=== PATIENT | female | born 1980 | race African-American/Black ===

== ENCOUNTER 2018-03-11 14:06 | Emergency (ER) | payer MEDICAID ==
[~2018-03-11] VITALS: Ht 167.6 cm; Wt 71.2 kg
[2018-03-11 14:24] VITALS: BP 131/83
--- NOTE | 2018-03-11 14:34 | NUR ---
ED Nurse Note: Pt came in due to LLQ abd pain started yesterday morning and feels bloated. Denies N/V. LBM 2 days ago. Pt also states that hse missed her menstrual period this month. Pt is AAO x4, ambulates with steady gait. No respiratory distress. VSS.
[2018-03-11 15:30] VITALS: BP 128/87
[2018-03-11 15:30] LABS: APPEARANCE,URINE SLIGHTLY CLOUDY; BILIRUBIN, URINE NEGATIVE (NEGATIVE); COLOR,URINE PALE YELLOW; GLUCOSE, URINE (UA) NEGATIVE (NEGATIVE); KETONES,URINE NEGATIVE (NEGATIVE); LEUKOCYTE ESTERASE ,URINE NEGATIVE (NEGATIVE); NITRITE,URINE NEGATIVE (NEGATIVE); PH,URINE 6.5 (4.5-8.0); PROTEIN,URINE 3+ (NEGATIVE); UROBILINOGEN,URINE NORMAL MG/DL (0.0-1.0)
--- NOTE | 2018-03-11 15:37 | NUR ---
ED Nurse Note: Pt resting on bed with blankets provided. Waiting for U/A result.
--- NOTE | 2018-03-11 15:47 | NUR ---
ED Nurse Note: test shows positive result. ER MD at the bed side. Pt is aware of the result. Awaiting for US.
--- NOTE | 2018-03-11 15:54 | NUR ---
ED Nurse Note: Blood collected and sent.
--- NOTE | 2018-03-11 15:55 | NUR ---
ED Nurse Note: Pt went down for US.
[2018-03-11 15:58] LABS: BASOPHILS % (AUTO) 0.7 % (0.0-2.0); EOSINOPHILS % (AUTO) 1.5 % (0.0-3.0); HEMATOCRIT 35.3 % (37.0-47.0); HEMOGLOBIN 11.5 G/DL (12.0-16.0); LYMPHOCYTES % (AUTO) 15.8 % (20.0-45.0); MEAN CORPUSCULAR VOLUME 80 FL (80-99); MONOCYTES % (AUTO) 4.7 % (1.0-10.0); NEUTROPHILS % (AUTO) 77.4 % (45.0-75.0); PLATELET COUNT 183 K/UL (150-450); RED BLOOD COUNT 4.39 M/UL (4.20-5.40); RED CELL DISTRIBUTION WIDTH 12.6 % (11.6-14.8); WHITE BLOOD COUNT 17.9 K/UL (4.8-10.8)
--- NOTE | 2018-03-11 16:10 | NUR ---
ED Nurse Note: Dr Olmstead ordered to cancel abdominal xray.
[2018-03-11 16:11] LABS: ANION GAP 9 mmol/L (5-15); BLOOD UREA NITROGEN 9 mg/dL (7-18); CARBON DIOXIDE 24 MMOL/L (21-32); CHLORIDE 104 MMOL/L (98-107); CREATININE 0.7 MG/DL (0.55-1.30); POTASSIUM 3.7 MMOL/L (3.5-5.1); SODIUM 137 MMOL/L (136-145)
[2018-03-11 16:15] LABS: ALANINE AMINOTRANSFERASE 21 U/L (12-78); ALBUMIN 3.2 G/DL (3.4-5.0); ALBUMIN/GLOBULIN RATIO 0.9 (1.0-2.7); ALKALINE PHOSPHATASE 57 U/L (46-116); ASPARTATE AMINO TRANSFERASE 13 U/L (15-37); BILIRUBIN,TOTAL 0.2 MG/DL (0.2-1.0)
--- NOTE | 2018-03-11 16:23 | Emergency Room Report ---
History of Present Illness General Chief Complaint: Abdominal Pain Source: Patient Present Illness HPI 37-year-old female presents ED for evaluation. Patient complaining of lower abdominal pain since yesterday. Localized left lower quadrant, dull, 6 out of 10, nonradiating. Denies vaginal bleeding or discharge. States that her last period was in early January. He is not sure if she is . Denies nausea or vomiting. Denies any diarrhea. No other aggravating relieving factors. Denies any other associated symptoms Allergies: Coded Allergies: No Known Allergies (Unverified , 03/11/18) Patient History Past Medical History: none Past Surgical History: none Pertinent Family History: none Social History: Denies: smoking, alcohol use, drug use Last Menstrual Period: 12-1 Now: No - not sure Immunizations: UTD Reviewed Nursing Documentation: PMH: Agreed; PSxH: Agreed Nursing Documentation-PMH Past Medical History: No Stated History Review of Systems All Other Systems: negative except mentioned in HPI Physical Exam Vital Signs Date Time Temp Pulse Resp B/P (MAP) Pulse Ox O2 Delivery O2 Flow Rate FiO2 03/11/18 14:24 98.4 18 131/83 98 Room Air 03/11/18 14:24 101 Sp02 EP Interpretation: reviewed, normal General Appearance: no apparent distress, alert, GCS 15, non-toxic Head: normocephalic, atraumatic Eyes: bilateral eye normal inspection, bilateral eye PERRL ENT: hearing grossly normal, normal pharynx, no angioedema, normal voice Neck: full range of motion, supple/symm/no masses Respiratory: chest non-tender, lungs clear, normal breath sounds, speaking full sentences Cardiovascular #1: regular rate, rhythm, no edema Cardiovascular #2: 2+ carotid (R), 2+ carotid (L), 2+ radial (R), 2+ radial (L) , 2+ dorsalis pedis (R), 2+ dorsalis pedis (L) Gastrointestinal: normal bowel sounds, non tender, soft, non-distended, no guarding, no rebound Rectal: deferred Genitourinary: normal inspection, no CVA tenderness Musculoskeletal: back normal, gait/station normal, normal range of motion, non- tender Neurologic: alert, oriented x3, responsive, motor strength/tone normal, sensory intact, speech normal Psychiatric: judgement/insight normal, memory normal, mood/affect normal, no suicidal/homicidal ideation Reflexes: 3+ bicep (R), 3+ bicep (L), 3+ tricep (R), 3+ tricep (L), 3+ knee (R) , 3+ knee (L) Skin: normal color, no rash, warm/dry, well hydrated Lymphatic: no adenopathy Medical Decision Making Last Vital Signs Date Time Temp Pulse Resp B/P (MAP) Pulse Ox O2 Delivery O2 Flow Rate FiO2 03/11/18 14:34 101 18 Room Air 03/11/18 14:24 98.4 131/83 98 Referrals: [facility],REFERRING (PCP) Kevin Olmstead MD Mar 11, 2018 16:23
--- NOTE | 2018-03-11 16:56 | NUR ---
ED Nurse Note: Patient back from US. No distress.
[2018-03-11 17:35] VITALS: BP 136/80
--- NOTE | 2018-03-11 17:35 | NUR ---
ED Nurse Note: Pt cleared by ER MD for discharge. ACI was given and explained to pt that she needs to visit her [employer] and verbalized understanding of teachings. All medical devices such as ID band/IV removed. Pt is AAO x4, ambulatory with steady gait and left with all personal belongings.
--- NOTE | 2018-03-12 09:06 | Diagnostic Imaging Report ---
Indication: Abdominal pain Technique: Supine view of the abdomen Comparison: none Findings: Bowel gas pattern is unremarkable. No unusual masses or calcifications. Impression: No acute process
--- NOTE | 2018-03-12 09:15 | Diagnostic Imaging Report ---
Indication: Pelvic pain, patient Technique: Transabdominal and transvaginal images. Doppler interrogation of the bilateral ovaries Comparison: none Findings: Uterus measures 10.5 cm length by 6 cm AP PA. Within the right atrium, there is a gestational sac. This contains a pole with a crown-rump length of 2.1 cm. This corresponds to an estimated gestational age of 8 weeks 5 days. There is positive heart activity, heart rate 173 bpm. There is a small area of subchorionic hemorrhage measuring 17 x 8 mm. No myometrial abnormality. Left ovary measures 3 cm in length. Right ovary measures 2.9 cm in length. Both ovaries demonstrate normal blood flow. No free cul-de-sac fluid Impression: Positive for 8 week 5 day, by crown-rump length measurement, single live intrauterine . Small 17 x 8 mm subchorionic hemorrhage
== END 2018-03-11 17:35 | disposition home or self-care (01) ==
LOC: EMR 15:00
DX: R10.30 Lower abdominal pain, unspecified (principal); O46.91 Antepartum hemorrhage, unspecified, first trimester; Z3A.08 8 weeks gestation of pregnancy
CPT/HCPCS: 36415; 74018; 76801; 76830; 80053; 81003; 81025; 83690; 84702; 85025; 99284

== ENCOUNTER 2018-10-19 12:47 | Emergency (ER) | payer MEDICAID ==
[~2018-10-19] VITALS: Ht 167.6 cm; Wt 82.6 kg
[~2018-10-19 12:47] MED LIST: METRONIDAZOLE500 MG ORAL
[2018-10-19 12:55] VITALS: BP 146/79
--- NOTE | 2018-10-19 13:00 | NUR ---
ED Nurse Note: Patient walked into ED c/o sub sternal chest pain that he rates 7/10 pain, states that this has been an going issue for the past week, patient recently gave 7 days ago and states that the symptoms started after giving , patient did take a ibuprofen earlier at 1230 today and has found no relief. IV started on left AC 20 gauge, patient is alert and oriented x4 and walks with a steady gait
[2018-10-19] MEDS ORDERED: PRENATAL 19 TA1 EAC1 PO (13:04)
[2018-10-19] MEDS ORDERED: Isovue-370 150ml vial INJ PRN (13:15)
--- NOTE | 2018-10-19 13:33 | Emergency Room Report ---
History of Present Illness General Chief Complaint: Chest Pain Source: Patient (Ann Curran DO) Present Illness HPI Patient presents with complaints of left upper chest pain Reports that the pain has been ongoing ever since delivery on 11 October There is a pleuritic component to it Denies any vomiting or diarrhea denies any abdominal pain She feels that laying on her left side improved symptoms Denies any recent travel otherwise denies any fevers or cough (Ann Curran DO) Allergies: Coded Allergies: No Known Allergies (Unverified , 03/11/18) Patient History Past Medical History: see triage record Now: No : 3 Para: 2 Reviewed Nursing Documentation: PMH: Agreed; PSxH: Agreed (Ann Curran DO) Nursing Documentation-PMH Past Medical History: No History, Except For Hx Cardiac Problems: No - Hx Hypertension: Yes Hx Pacemaker: No Hx Asthma: No Hx COPD: No Hx Diabetes: No Hx Cancer: No Hx Gastrointestinal Problems: No Hx Dialysis: No Hx Neurological Problems: No Hx Cerebrovascular Accident: No Hx Seizures: No (Ann Curran DO) Review of Systems All Other Systems: negative except mentioned in HPI (Ann Curran DO) Physical Exam Vital Signs Date Time Temp Pulse Resp B/P (MAP) Pulse Ox O2 Delivery O2 Flow Rate FiO2 10/19/18 12:50 98.8 112 18 146/79 (101) 99 Room Air Sp02 EP Interpretation: reviewed, normal General Appearance: well appearing, no apparent distress Head: normocephalic, atraumatic Eyes: bilateral eye PERRL, bilateral eye EOMI ENT: hearing grossly normal, normal pharynx, TMs + canals normal, uvula midline Neck: full range of motion, supple, no meningismus, no bony tend Respiratory: lungs clear, normal breath sounds, no rhonchi, no respiratory distress, no retraction, no accessory muscle use Cardiovascular #1: normal peripheral pulses, no edema, no gallop, no JVD, no murmur, tachycardia Gastrointestinal: normal bowel sounds, non tender, soft, no mass, no organomegaly, non-distended, no guarding, no hernia, no pulsatile mass, no rebound Genitourinary: no CVA tenderness Musculoskeletal: normal inspection Neurologic: oriented x3, responsive, advance agent III-XII nml as tested, motor strength/ tone normal, sensory intact Psychiatric: mood/affect normal Skin: no rash Lymphatic: normal inspection, no adenopathy (Ann Curran DO) Procedures Critical Care Time Critical Care Time i. I feel this is a highly complex case requiring extensive working including EKG/Rhythm strip, Xray/CT/US, Blood/urine lab work, repeat exams while in ED, and administration of strong opiates/narcotics for pain control, admission to hospital or close patient follow up. Total time: 60 min bedside evaluation and treatment excludes procedures (EKG). Reason for critical care: dyspnea, pericardial effusion. Possible complications: hypotension, hypertension, [place], shock, arrhythmias, metabolic acidosis, end organ damage, respiratory failure. Interventions: CTA, discussion with cardiology, stat 2D ECHO Course: Presenting with shortness of breath. Status post on 10/12. Concern for PE. CT angio shows no evidence of PE but there is pericardial effusion. Discussed with cardiology. Concern for cardiomyopathy. Recommended stat 2D echo which shows LV hypokinesis with EF 40 to 45% with small pericardial effusion. LV diastolic dysfunction grade 1. Mild pulmonary hypertension. Consistent with possible cardiomyopathy. Patient remains dyspneic. Somewhat tachycardic. Recommended to be admitted Consultations: nursing staff, EMS, family Performed by: Dr Olmstead Tolerated well condition = serious j. because of unstable vital signs this patient had a condition that could potentially threaten life or limb. I feel this is a critical patient who required my full attention while patient was considered critical. Total Critical Care Time excluding procedures was greater than 60 minutes (Kevin Olmstead MD) Medical Decision Making Diagnostic Impression: Primary Impression: Dyspnea Qualified Codes: R06.00 - Dyspnea, unspecified Additional Impressions: Left ventricular hypokinesis Pericardial effusion ER Course Hospital Course 38 year-old female presents ED complaining of SOB. s/p csection on 10/12. patient initially seen and evaluated by Dr Curran; see his note for full history and physical Clinical course Labsnoted leukocytosis, hemoglobin/hematocrit stable, electro lites okay, troponins negative, UDS negative, UA positive bacteria EKGsinus tachycardia, no acute ischemic changes interpreted by me CTA chest -evidence of PE however pericardial effusion noted discussed with cardiology. Recommended 2D echo. 2D echo ordered in ED and shows LV hypokinesis, reduced EF. concern for cardiomyopathy patient remains dyspneic. antibiotics given for UTI Because of insurance patient will be transferred I. I feel this is a highly complex case requiring extensive working including EKG/Rhythm strip, Xray/CT/US, Blood/urine lab work, repeat exams while in ED, and administration of strong opiates/narcotics for pain control, admission to hospital or close patient follow up. Diagnosis - dyspnea, LV hypokinesis, pericardial effusion Transferred in serious condition Labs Test 10/19/18 13:20 10/19/18 13:40 White Blood Count 13.9 K/UL (4.8-10.8) Red Blood Count 5.02 M/UL (4.20-5.40) Hemoglobin 13.1 G/DL (12.0-16.0) Hematocrit 40.0 % (37.0-47.0) Mean Corpuscular Volume 80 FL (80-99) Mean Corpuscular Hemoglobin 26.2 PG (27.0-31.0) Mean Corpuscular Hemoglobin Concent 32.8 G/DL (32.0-36.0) Red Cell Distribution Width 14.5 % (11.6-14.8) Platelet Count 275 K/UL (150-450) Mean Platelet Volume 7.4 FL (6.5-10.1) Neutrophils (%) (Auto) 73.9 % (45.0-75.0) Lymphocytes (%) (Auto) 15.8 % (20.0-45.0) Monocytes (%) (Auto) 7.0 % (1.0-10.0) Eosinophils (%) (Auto) 2.8 % (0.0-3.0) Basophils (%) (Auto) 0.5 % (0.0-2.0) Sodium Level 140 MMOL/L (136-145) Potassium Level 3.7 MMOL/L (3.5-5.1) Chloride Level 105 MMOL/L (98-107) Carbon Dioxide Level 24 MMOL/L (21-32) Anion Gap 11 mmol/L (5-15) Blood Urea Nitrogen 16 mg/dL (7-18) Creatinine 0.9 MG/DL (0.55-1.30) Estimat Glomerular Filtration Rate > 60 mL/min (>60) Glucose Level 104 MG/DL (74-106) Calcium Level 9.2 MG/DL (8.5-10.1) Total Bilirubin 0.6 MG/DL (0.2-1.0) Aspartate Amino Transf (AST/SGOT) 25 U/L (15-37) Alanine Aminotransferase (ALT/SGPT) 48 U/L (12-78) Alkaline Phosphatase 98 U/L (46-116) Total Creatine Kinase 158 U/L (26-308) Creatine Kinase MB 2.1 NG/ML (0.0-3.6) Creatine Kinase MB Relative Index 1.3 Troponin I 0.000 ng/mL (0.000-0.056) Pro-B-Type Natriuretic Peptide 68 pg/mL (0-125) Total Protein 7.2 G/DL (6.4-8.2) Albumin 2.8 G/DL (3.4-5.0) Globulin 4.4 g/dL Albumin/Globulin Ratio 0.6 (1.0-2.7) Urine Color Yellow Urine Appearance Slightly cloudy Urine pH 5 (4.5-8.0) Urine Specific Riva 1.015 (1.005-1.035) Urine Protein 2+ (NEGATIVE) Urine Glucose (UA) Negative (NEGATIVE) Urine Ketones Negative (NEGATIVE) Urine Blood 4+ (NEGATIVE) Urine Nitrite Negative (NEGATIVE) Urine Bilirubin Negative (NEGATIVE) Urine Urobilinogen Normal MG/DL (0.0-1.0) Urine Leukocyte Esterase 1+ (NEGATIVE) Urine RBC 5-10 /HPF (0 - 2) Urine WBC 2-4 /HPF (0 - 2) Urine Squamous Epithelial Cells Moderate /LPF (NONE/OCC) Urine Bacteria Moderate /HPF (NONE) Urine HCG, Qualitative Negative (NEGATIVE) Urine Opiates Screen Negative (NEGATIVE) Urine Barbiturates Screen Negative (NEGATIVE) Phencyclidine (PCP) Screen Negative (NEGATIVE) Urine Amphetamines Screen Negative (NEGATIVE) Urine Benzodiazepines Screen Negative (NEGATIVE) Urine Cocaine Screen Negative (NEGATIVE) Urine Marijuana (THC) Screen Negative (NEGATIVE) (Kevin Olmstead MD) EKG Diagnostic Results Rate: tachycardiac Rhythm: NSR ST Segments: no acute changes ASA given to the pt in ED: No (Kevin Olmstead MD) Rhythm Strip Diag. Results EP Interpretation: yes Rhythm: NSR, no PVC's, no ectopy (Kevin Olmstead MD) CT/MRI/US Diagnostic Results CT/MRI/US Diagnostic Results : Imaging Test Ordered: CTA Impression Findings: The pulmonary artery is well opacified and shows no filling defects. There is no adenopathy. There is no aortic dissection or aneurysm identified within the chest. Trace pericardial effusion demonstrated. Trace bilateral pleural effusions are present with posterior basal atelectasis suspected given the streaky densities. No airspace consolidation seen. Visualized part of the upper abdomen is unremarkable. (Kevin Olmstead MD) Last Vital Signs Date Time Temp Pulse Resp B/P (MAP) Pulse Ox O2 Delivery O2 Flow Rate FiO2 10/19/18 12:55 112 20 Room Air 10/19/18 12:55 98.8 146/79 99 (Ann Curran DO) Status: improved (Kevin Olmstead MD) [facility] Condition: Serious Ann Curran DO Oct 19, 2018 13:33 Kevin Olmstead MD Oct 19, 2018 17:54
[2018-10-19 13:38] LABS: BASOPHILS % (AUTO) 0.5 % (0.0-2.0); EOSINOPHILS % (AUTO) 2.8 % (0.0-3.0); HEMOGLOBIN 13.1 G/DL (12.0-16.0); LYMPHOCYTES % (AUTO) 15.8 % (20.0-45.0); MEAN CORPUSCULAR VOLUME 80 FL (80-99); NEUTROPHILS % (AUTO) 73.9 % (45.0-75.0); PLATELET COUNT 275 K/UL (150-450); RED BLOOD COUNT 5.02 M/UL (4.20-5.40); RED CELL DISTRIBUTION WIDTH 14.5 % (11.6-14.8); WHITE BLOOD COUNT 13.9 K/UL (4.8-10.8)
[2018-10-19] MEDS ORDERED: Enoxaparin 100mg Inj SUBQ ONE (13:45)
[2018-10-19 13:50] LABS: ANION GAP 11 mmol/L (5-15); BLOOD UREA NITROGEN 16 mg/dL (7-18); CALCIUM 9.2 MG/DL (8.5-10.1); CARBON DIOXIDE 24 MMOL/L (21-32); CHLORIDE 105 MMOL/L (98-107); CREATININE 0.9 MG/DL (0.55-1.30); POTASSIUM 3.7 MMOL/L (3.5-5.1); SODIUM 140 MMOL/L (136-145)
--- NOTE | 2018-10-19 14:00 | NUR ---
ED Nurse Note: Patient went down to CT accompanied by krystle
[2018-10-19 14:05] LABS: ALANINE AMINOTRANSFERASE 48 U/L (12-78); ALBUMIN 2.8 G/DL (3.4-5.0); ALBUMIN/GLOBULIN RATIO 0.6 (1.0-2.7); ALKALINE PHOSPHATASE 98 U/L (46-116); ASPARTATE AMINO TRANSFERASE 25 U/L (15-37); BILIRUBIN,TOTAL 0.6 MG/DL (0.2-1.0); CKMB 2.1 NG/ML (0.0-3.6); CREATINE KINASE 158 U/L (26-308)
--- NOTE | 2018-10-19 14:30 | NUR ---
ED Nurse Note: Patient has came back from CT in no distress
--- NOTE | 2018-10-19 15:00 | Diagnostic Imaging Report ---
Indication: Chest pain Technique: Continuous helical transaxial imaging of the chest was obtained from the thoracic inlet to the upper abdomen during rapid intravenous contrast administration. Arterial phase of enhancement obtained. Coronal 2-D reformats were also obtained and maximum intensity projection images in multiple planes. Study obtained in a Siemens sensation [address] Automatic Exposure Control was utilized. Total Dose length Product (DLP): 1202.[address] Dose Index Volume (CTDIvol): 30.37 mGy Comparison: None Findings: The pulmonary artery is well opacified and shows no filling defects. There is no adenopathy. There is no aortic dissection or aneurysm identified within the chest. Trace pericardial effusion demonstrated. Trace bilateral pleural effusions are present with posterior basal atelectasis suspected given the streaky densities. No airspace consolidation seen. Visualized part of the upper abdomen is unremarkable. IMPRESSION: No evidence of pulmonary embolus, aortic dissection or aneurysm. Patchy basilar atelectasis. Trace bilateral pleural effusions Trace pericardial effusion The CT scanner at [facility] is accredited by the [employer] and the scans are performed using dose optimization techniques as appropriate to a performed exam including Automatic Exposure control.
[2018-10-19 15:29] LABS: APPEARANCE,URINE SLIGHTLY CLOUDY; BILIRUBIN, URINE NEGATIVE (NEGATIVE); GLUCOSE, URINE (UA) NEGATIVE (NEGATIVE); KETONES,URINE NEGATIVE (NEGATIVE); LEUKOCYTE ESTERASE ,URINE 1+ (NEGATIVE); NITRITE,URINE NEGATIVE (NEGATIVE); PH,URINE 5 (4.5-8.0); PROTEIN,URINE 2+ (NEGATIVE); UROBILINOGEN,URINE NORMAL MG/DL (0.0-1.0)
[2018-10-19 15:32] LABS: COLOR,URINE YELLOW
[2018-10-19 16:56] VITALS: BP 142/73
--- NOTE | 2018-10-19 16:56 | NUR ---
ED Nurse Note: Patient has agreed to be admitted. complains of no distress at this time
--- NOTE | 2018-10-19 17:56 | NUR ---
ED Nurse Note: Patient offered sandwich and patient ambulated to the bathroom
[2018-10-19] MEDS ORDERED: cefTRIAXone 1 GM in NS 55 ML IVPB ONE (18:00)
[2018-10-19 18:36] VITALS: BP 138/90
--- NOTE | 2018-10-19 18:50 | NUR ---
ED Nurse Note: Gave report to SHANT Ramachandran
--- NOTE | 2018-10-19 19:13 | NUR ---
HAND-OFF: Report given to SHANT Peterson.
[2018-10-19 19:14] VITALS: BP 142/85
--- NOTE | 2018-10-21 15:22 | Cardiology Report ---
APPROVED REPORT EKG Measurement Heart [id number] Sinus tachycardia Right atrial enlargement Borderline ECG
--- NOTE | 2018-10-22 08:46 | Cardiology Report ---
APPROVED REPORT EXAM: Two-dimensional and M-mode echocardiogram with Doppler and color Doppler. INDICATION Shortness of breath M-Mode DIMENSIONS IVSd1.4 (0.7-1.1cm)Left Atrium (MM)3.1 (1.6-4.0cm) LVDd4.0 (3.5-5.6cm)Aortic Root2.8 (2.0-3.7cm) PWd1.0 (0.7-1.1cm)Aortic Cusp Exc.2.0 (1.5-2.0cm) LVDs3.0 (2.5-4.0cm) PWs1.5 cm Technically difficult study due to poor acoustic windows. Study quality precludes accurate assessment of regional wall motion, but septal motion is abnormal. Normal left ventricular chamber size. Global left ventricular hypokinesis. Left ventricular ejection fraction estimated to be mildly decreased. Mild left ventricular hypertrophy. Small posterior pericardial effusion. All other cardiac chamber sizes are within normal limits. Normal appearing aortic, mitral, pulmonic and tricuspid valves. Mild mitral annulus and aortic root calcification. IVC is normal in size with physiological collapse. A color flow and spectral Doppler study was performed and revealed: No aortic regurgitation. Mild to moderate mitral regurgitation. Mitral diastolic velocities suggest mild left ventricular diastolic dysfunction (Grade I). Trace tricuspid regurgitation. Tricuspid systolic velocities suggests peak right ventricular systolic pressure of 35 mmHg, consistent with mild pulmonary hypertension. No pulmonic regurgitation present.
== END 2018-10-19 19:15 | disposition short-term general hospital (02) ==
LOC: EMR 13:44
DX: I31.3 Pericardial effusion (noninflammatory) (principal); R06.00 Dyspnea, unspecified; I50.1 Left ventricular failure, unspecified
CPT/HCPCS: 36415; 71275; 80053; 80307; 81003; 81025; 82550; 82553; 83880; 84484; 85025; 87086; 93005; 93306; 96365; 99291; J0696; J1650; Q9967

== ENCOUNTER 2019-04-25 11:20 | Emergency (ER) | payer MEDICAID ==
[~2019-04-25] VITALS: Ht 167.6 cm; Wt 81.6 kg
[~2019-04-25 11:20] MED LIST changes: +PRENATAL 19 TA1 EAC1 PO
--- NOTE | 2019-04-25 11:37 | NUR ---
ED Nurse Note: Pt ambulated to ED from home with c/o generalized body weakness and fever x 3 days. Pt denies any recent travels nor exposure to large crowded areas. Pt states she stayed home all the time. Pt added she just started getting her depo shots. Pt is AOx4, calm and cooperative; tachycardic on triage. Placed on bed and gown.
[2019-04-25 11:46] VITALS: BP 114/71
--- NOTE | 2019-04-25 11:55 | NUR ---
ED Nurse Note: Per pt after taking depo shots, she's been having some heavy bleeding. Latest BP: 127/83. Spouse at bedside.
[2019-04-25 13:02] LABS: APPEARANCE,URINE CLOUDY; BILIRUBIN, URINE NEGATIVE (NEGATIVE); GLUCOSE, URINE (UA) NEGATIVE (NEGATIVE); KETONES,URINE 1+ (NEGATIVE); LEUKOCYTE ESTERASE ,URINE 1+ (NEGATIVE); NITRITE,URINE POSITIVE (NEGATIVE); PH,URINE 5 (4.5-8.0); PROTEIN,URINE 3+ (NEGATIVE); UROBILINOGEN,URINE 1 MG/DL (0.0-1.0)
[2019-04-25 13:06] LABS: ANION GAP 12 mmol/L (5-15); BLOOD UREA NITROGEN 15 mg/dL (7-18); CALCIUM 9.2 MG/DL (8.5-10.1); CARBON DIOXIDE 24 MMOL/L (21-32); CHLORIDE 102 MMOL/L (98-107); CREATININE 0.9 MG/DL (0.55-1.30); POTASSIUM 3.9 MMOL/L (3.5-5.1); SODIUM 138 MMOL/L (136-145)
[2019-04-25 13:09] LABS: BASOPHILS % (AUTO) 1.3 % (0.0-2.0); EOSINOPHILS % (AUTO) 0.6 % (0.0-3.0); HEMATOCRIT 38.4 % (37.0-47.0); LYMPHOCYTES % (AUTO) 29.3 % (20.0-45.0); MEAN CORPUSCULAR VOLUME 75 FL (80-99); MONOCYTES % (AUTO) 11.8 % (1.0-10.0); NEUTROPHILS % (AUTO) 57.1 % (45.0-75.0); PLATELET COUNT 198 K/UL (150-450); RED BLOOD COUNT 5.13 M/UL (4.20-5.40); RED CELL DISTRIBUTION WIDTH 13.1 % (11.6-14.8); WHITE BLOOD COUNT 7.3 K/UL (4.8-10.8)
--- NOTE | 2019-04-25 13:09 | Emergency Room Report ---
History of Present Illness General Chief Complaint: Headache Source: Patient Present Illness HPI Patient presents with complaints of headache body ache ongoing for the past 3 days complains of mild sore throat and left flank pain as well denies any vomiting or diarrhea denies any lower abdominal pain denies any recent travel Denies any contact with known coronavirus cases Denies any posterior neck pain or photophobia Allergies: Coded Allergies: No Known Allergies (Unverified , 03/11/18) Patient History Past Medical History: see triage record Last Menstrual Period: irregular Now: No Reviewed Nursing Documentation: PMH: Agreed; PSxH: Agreed Nursing Documentation-PMH Hx Cardiac Problems: No - Hx Hypertension: Yes Hx Pacemaker: No Hx Asthma: No Hx COPD: No Hx Diabetes: No Hx Cancer: No Hx Gastrointestinal Problems: No Hx Dialysis: No Hx Neurological Problems: No Hx Cerebrovascular Accident: No Hx Seizures: No Review of Systems All Other Systems: negative except mentioned in HPI Physical Exam Vital Signs Date Time Temp Pulse Resp B/P (MAP) Pulse Ox O2 Delivery O2 Flow Rate FiO2 04/25/19 11:25 99.3 114 17 114/71 (85) 97 Room Air Sp02 EP Interpretation: reviewed, normal General Appearance: well appearing, no apparent distress Head: normocephalic, atraumatic Eyes: bilateral eye PERRL, bilateral eye EOMI ENT: hearing grossly normal, normal pharynx, TMs + canals normal, uvula midline Neck: full range of motion, supple, no meningismus, no bony tend Respiratory: lungs clear, normal breath sounds, no rhonchi, no respiratory distress, no retraction, no accessory muscle use Cardiovascular #1: normal peripheral pulses, regular rate, rhythm, no edema, no gallop, no JVD, no murmur Gastrointestinal: normal bowel sounds, non tender, soft, no mass, no organomegaly, non-distended, no guarding, no hernia, no pulsatile mass, no rebound Genitourinary: no CVA tenderness Musculoskeletal: normal inspection Neurologic: motor strength/tone normal, audio visual engineer III-XII nml as tested, oriented x3 , sensory intact, responsive Psychiatric: mood/affect normal Skin: no rash Lymphatic: normal inspection, no adenopathy Medical Decision Making Diagnostic Impression: Primary Impression: Headache ER Course Multiple differentials including but not limited to neurological, neurosurgical , infectious process were entertained Patient had blood work initiated All within normal limits Patient's urine sample shows a large amount of blood Urine nitrite was reported positive however leukocytes and bacteria were negative possibly from the blood Patient does not have any dysuria symptoms and at this time stable for close outpatient follow-up Labs Test 04/25/19 11:40 White Blood Count 7.3 K/UL (4.8-10.8) Red Blood Count 5.13 M/UL (4.20-5.40) Hemoglobin 13.0 G/DL (12.0-16.0) Hematocrit 38.4 % (37.0-47.0) Mean Corpuscular Volume 75 FL (80-99) Mean Corpuscular Hemoglobin 25.3 PG (27.0-31.0) Mean Corpuscular Hemoglobin Concent 33.8 G/DL (32.0-36.0) Red Cell Distribution Width 13.1 % (11.6-14.8) Platelet Count 198 K/UL (150-450) Mean Platelet Volume 8.6 FL (6.5-10.1) Neutrophils (%) (Auto) 57.1 % (45.0-75.0) Lymphocytes (%) (Auto) 29.3 % (20.0-45.0) Monocytes (%) (Auto) 11.8 % (1.0-10.0) Eosinophils (%) (Auto) 0.6 % (0.0-3.0) Basophils (%) (Auto) 1.3 % (0.0-2.0) Urine Color Red Urine Appearance Cloudy Urine pH 5 (4.5-8.0) Urine Specific [place] 1.020 (1.005-1.035) Urine Protein 3+ (NEGATIVE) Urine Glucose (UA) Negative (NEGATIVE) Urine Ketones 1+ (NEGATIVE) Urine Blood 5+ (NEGATIVE) Urine Nitrite Positive (NEGATIVE) Urine Bilirubin Negative (NEGATIVE) Urine Urobilinogen 1 MG/DL (0.0-1.0) Urine Leukocyte Esterase 1+ (NEGATIVE) Urine RBC Tntc /HPF (0 - 2) Urine WBC 2-4 /HPF (0 - 2) Urine Squamous Epithelial Cells Few /LPF (NONE/OCC) Urine Bacteria Few /HPF (NONE) Sodium Level 138 MMOL/L (136-145) Potassium Level 3.9 MMOL/L (3.5-5.1) Chloride Level 102 MMOL/L (98-107) Carbon Dioxide Level 24 MMOL/L (21-32) Anion Gap 12 mmol/L (5-15) Blood Urea Nitrogen 15 mg/dL (7-18) Creatinine 0.9 MG/DL (0.55-1.30) Estimat Glomerular Filtration Rate > 60 mL/min (>60) Glucose Level 116 MG/DL (74-106) Calcium Level 9.2 MG/DL (8.5-10.1) Total Bilirubin 0.3 MG/DL (0.2-1.0) Aspartate Amino Transf (AST/SGOT) 23 U/L (15-37) Alanine Aminotransferase (ALT/SGPT) 58 U/L (12-78) Alkaline Phosphatase 85 U/L (46-116) Total Protein 7.0 G/DL (6.4-8.2) Albumin 3.1 G/DL (3.4-5.0) Globulin 3.9 g/dL Albumin/Globulin Ratio 0.8 (1.0-2.7) Lipase 159 U/L (73-393) Chest X-Ray Diagnostic Results Chest X-Ray Diagnostic Results : Chest X-Ray Ordered: Yes # of Views/Limited/Complete: 1 View Indication: Chest Pain EP Interpretation: Yes Interpretation: no consolidation, no effusion, no pneumothorax Impression: No acute disease Electronically Signed by: Ann Curran DO Last Vital Signs Date Time Temp Pulse Resp B/P (MAP) Pulse Ox O2 Delivery O2 Flow Rate FiO2 04/25/19 11:46 99.3 17 114/71 97 Room Air 04/25/19 11:25 114 Status: improved Disposition: HOME, SELF-CARE Condition: Improved Scripts Nitrofurantoin Monohyd/M-Cryst* (MACROBID 100 MG*) 100 Mg Capsule 100 MG ORAL EVERY 12 HOURS for 5 Days, CAP Prov: Ann Curran DO 04/25/19 Oseltamivir Phosphate (Tamiflu) 75 Mg Capsule 75 MG ORAL TWICE A DAY for 5 Days, CAP Prov: Ann Curran DO 04/25/19 Ibuprofen* (MOTRIN*) 600 Mg Tablet 600 MG ORAL Q8H PRN for For Pain, #20 TAB 0 Refills Prov: Ann Curran DO 04/25/19 Additional Instructions: Patient is provided with the discharge instructions notified to follow up with primary doctor in the next 2-3 days otherwise return to the er with any worsening symptoms. Please note that this report is being documented using DRAGON technology. This can lead to erroneous entry secondary to incorrect interpretation by the dictating instrument. Ann Curran DO Apr 25, 2019 13:09
[2019-04-25 13:18] LABS: ALANINE AMINOTRANSFERASE 58 U/L (12-78); ALBUMIN 3.1 G/DL (3.4-5.0); ALBUMIN/GLOBULIN RATIO 0.8 (1.0-2.7); ALKALINE PHOSPHATASE 85 U/L (46-116); ASPARTATE AMINO TRANSFERASE 23 U/L (15-37); BILIRUBIN,TOTAL 0.3 MG/DL (0.2-1.0)
--- NOTE | 2019-04-25 13:23 | NUR ---
ED Nurse Note: X-ray at bedside.
[2019-04-25 13:30] LABS: COLOR,URINE RED
[2019-04-25] MEDS ORDERED: IBUPROFEN600 MG ORAL (14:02)
[2019-04-25] MEDS ORDERED: TAMIFLU75 MG ORAL (14:02)
[2019-04-25] MEDS ORDERED: NITROFURANTOIN100 M2 ORAL (14:05)
--- NOTE | 2019-04-25 14:10 | NUR ---
ER DISCHARGE NOTE: Patient is cleared to be discharged per ERMD, pt is aox4, on room air, with stable vital signs. pt was given dc and prescription instructions, pt was able to verbalize understanding, pt id band removed. pt is able to ambulate with steady gait. pt took all belongings.
--- NOTE | 2019-04-25 15:43 | Diagnostic Imaging Report ---
Indication: Cough Technique: One view of the chest Comparison: No comparison studies Findings: Lungs and pleural spaces are clear. The heart size is upper limits normal. Impression: No acute process
== END 2019-04-25 14:10 | disposition home or self-care (01) ==
LOC: EMR 12:00
DX: R51 Headache (principal); I10 Essential (primary) hypertension
CPT/HCPCS: 36415; 71045; 80053; 81003; 83690; 85025; Z7502; 99283